=== PATIENT | female | born 1985 | race Hispanic/Latino ===

== ENCOUNTER 2022-01-19 20:54 | Inpatient (IN) | payer SELFPAY ==
[~2022-01-19 20:54] MED LIST: Iopamidol 370 76% 100 ML VIAL ONE
[2022-01-19 21:16] LABS: #Eosinphils 0.1 thou/uL (0.0-0.7); #Lymphocytes 1.6 thou/uL (1.20-3.40); #Monocytes 0.7 thou/uL (0.11-0.59); #Neutrophils 4.8 thou/uL (1.40-6.50); %Basophils 0.5 % (0.0-1.0); %Eosinophils 1.9 % (0.0-10.0); %Lymphocytes 22.3 % (21.0-51.0); %Neutrophils 66.3 % (42.0-75.0); Hemoglobin 11.9 g/dL (12.0-16.0); Mean Corpuscular HGB CONC 31.8 g/dL (32.0-36.0); Mean Corpuscular Hemoglobin 24.8 pg (27.0-31.0); Mean Corpuscular Volume 77.9 fL (78.0-98.0); Mean Platelet Volume 8.3 fL (7.4-10.4); Platelet Count 249 thou/uL (130-400); RBC Distribution Width 16.6 % (11.5-14.5); White Blood Cell (WBC) Count 7.3 thou/uL (4.8-10.8)
[2022-01-19 21:38] LABS: ALT (SGPT) 14 U/L (8-55); AST (SGOT) 23 U/L (5-34); Albumin 4.4 g/dL (3.5-5.0); Alkaline Phosphatase 63 U/L (40-110); Anion Gap 13 mmol/L (10-20); BUN (Urea Nitrogen) 14 mg/dL (7.0-18.7); Bilirubin, Total 0.5 mg/dL (0.2-1.2); Calc. Creatinine Clearance 0 mL/min (70-130); Calcium 9.2 mg/dL (7.8-10.44); Carbon Dioxide 27 mmol/L (22-29); Chloride 103 mmol/L (98-107); Globulin 3.5 g/dL (2.4-3.5); Glucose 103 mg/dL (70-105); Lipase 172 U/L (8-78); Potassium 3.3 mmol/L (3.5-5.1); Protein, Total 7.9 g/dL (6.0-8.3); Sodium 140 mmol/L (136-145)
[2022-01-19] MEDS ORDERED: Acetaminophen 500 MG TAB ONE (21:45)
[2022-01-19] MEDS ORDERED: Promethazine 25 MG TAB ONE (21:45)
[2022-01-19 23:13] LABS: Bacteria/HPF 1+ HPF (None Seen); Bilirubin Negative (Negative); Blood, Urine Trace (Negative); Clarity Turbid (Clear); Glucose, Urine (Dipstick) Normal (Negative); Ketone, Urine Trace mg/dL (Negative); Leukocyte 250 Leu/uL (Negative); Nitrite Negative (Negative); Protein, Urine (Dipstick) 70 mg/dL (Neg-Trace); Specific Gravity, Urine 1.033 (1.002-1.036); Urobilinogen Normal mg/dL (Less than 2); pH, Urine 6.5 (5.0-9.0)
[2022-01-19 23:14] LABS: Pregnancy Test - Urine (BHCG) Negative (Negative); Pregu Control Background? CLEAR/WHITE (CLR/WHITE); Pregu Control Bar Appear? YES (CONTROL BAR); Specific Gravity 1.033 (1.002-1.036)
[2022-01-19 23:18] LABS: BHCG - Serum Negative (NEGATIVE); Pregs Control Background? CLEAR/WHITE (CLR/WHITE); Pregs Control Bar Appear? YES (CONTROL BAR)
[2022-01-20] MEDS ORDERED: Pantoprazole 40 MG VIAL ONE (00:45)
[2022-01-20] MEDS ORDERED: Morphine 2 MG/ML VIAL ONE (00:51)
[2022-01-20] MEDS ORDERED: Acetaminophen 325 MG TAB PO PRN (03:00)
[2022-01-20 03:18] VITALS: BMI 36.6
[2022-01-20] MEDS: Morphine 2 MG/ML VIAL SLOW IVP PRN ×3 (10:54→21:39)
[2022-01-20] MEDS: Sodium Chloride 0.9% 1,000 ML IV SCH (10:54)
[2022-01-20 15:35] LABS: SARS-CoV-2 PCR by NAA Not Detected (NotDetected)
[2022-01-20] MEDS: Acetaminophen 325 MG TAB PO PRN (20:05)
[2022-01-20] MEDS: Pantoprazole 40 MG VIAL IVP SCH (20:07)
[2022-01-21] MEDS: Sodium Chloride 0.9% 1,000 ML IV SCH ×2 (00:01→13:41)
[2022-01-21] MEDS ORDERED: Morphine 2 MG/ML VIAL ONE ×2 (01:48→10:13)
[2022-01-21] MEDS: Morphine 2 MG/ML VIAL SLOW IVP PRN ×6 (01:50→22:49)
[2022-01-21 06:48] LABS: #Eosinphils 0.1 thou/uL (0.0-0.7); #Monocytes 0.4 thou/uL (0.11-0.59); #Neutrophils 2.5 thou/uL (1.40-6.50); %Basophils 0.3 % (0.0-1.0); %Eosinophils 2.3 % (0.0-10.0); %Monocytes 9.1 % (0.0-10.0); %Neutrophils 62.3 % (42.0-75.0); Hemoglobin 10.5 g/dL (12.0-16.0); Mean Corpuscular HGB CONC 31.7 g/dL (32.0-36.0); Mean Corpuscular Hemoglobin 25.2 pg (27.0-31.0); Mean Corpuscular Volume 79.5 fL (78.0-98.0); Mean Platelet Volume 8.8 fL (7.4-10.4); Platelet Count 184 thou/uL (130-400); RBC Distribution Width 16.6 % (11.5-14.5); Red Blood Cell (RBC) Count 4.16 mill/uL (4.20-5.40)
[2022-01-21 06:51] LABS: CRP (Inflammatory) 0.51 mg/dL (= or < 0.5)
[2022-01-21 06:54] LABS: Anion Gap 15 mmol/L (10-20); BUN (Urea Nitrogen) 9 mg/dL (7.0-18.7); Calc. Creatinine Clearance 196 mL/min (70-130); Calcium 8.4 mg/dL (7.8-10.44); Carbon Dioxide 21 mmol/L (22-29); Chloride 108 mmol/L (98-107); Glucose 70 mg/dL (70-105); Iron 35 ug/dL (50-170); Iron Binding Capacity, Total 375 mcg/dL (265-497); Sodium 140 mmol/L (136-145)
[2022-01-21] MEDS: Pantoprazole 40 MG VIAL IVP SCH ×2 (08:42→20:16)
[2022-01-21] MEDS ORDERED: Fentanyl 100 MCG/2 ML VIAL ONE ×3 (11:07→12:18)
[2022-01-21] MEDS ORDERED: PROPOFOL 200 MG/20 ML VIAL ONE (11:18)
[2022-01-21] MEDS ORDERED: Lidocaine 1% PF 5 ML VIAL ONE (11:18)
[2022-01-21] MEDS ORDERED: Cyanocobalamin 1000 MCG/ML VIAL IM SCH (13:00)
[2022-01-21] MEDS: Iron, Sodium Ferric Gluconate 250 MG in Sodium Chloride 0.9% 250 ML 250 ML IVPB SCH (20:16)
[2022-01-21] MEDS: Acetaminophen 325 MG TAB PO PRN (22:17)
[2022-01-21] MEDS ORDERED: Morphine 2 MG/ML VIAL SLOW IVP SCH (23:45)
[2022-01-22] MEDS: Morphine 2 MG/ML VIAL SLOW IVP PRN (03:19)
[2022-01-22] MEDS: Sodium Chloride 0.9% 1,000 ML IV SCH ×2 (05:09→17:19)
[2022-01-22] MEDS: Iron, Sodium Ferric Gluconate 250 MG in Sodium Chloride 0.9% 250 ML 250 ML IVPB SCH (08:39)
[2022-01-22] MEDS: Pantoprazole 40 MG VIAL IVP SCH (08:39)
[2022-01-22] MEDS ORDERED: Sodium Chloride 0.9% 1,000 ML IV SCH (09:00)
[2022-01-22] MEDS: Sucralfate 1 GM TAB PO SCH ×3 (11:14→21:09)
[2022-01-22] MEDS: Acetaminophen 325 MG TAB PO PRN (11:21)
[2022-01-22] MEDS ORDERED: Dicyclomine 20 MG TAB PO SCH (15:00)
[2022-01-22] MEDS ORDERED: Dicyclomine 10 MG CAP PO PRN (18:36)
[2022-01-22] MEDS ORDERED: Polyethylene Glycol 3350 17 GM Packet PO SCH (18:45)
[2022-01-23] MEDS: Acetaminophen 325 MG TAB PO PRN ×2 (00:50→06:05)
[2022-01-23] MEDS: Sodium Chloride 0.9% 1,000 ML IV SCH (03:22)
[2022-01-23] MEDS: Sucralfate 1 GM TAB PO SCH (06:03)
[2022-01-23 08:34] VITALS: BP 99/70; TEMP 98.1
[2022-01-23] MEDS ORDERED: Polyethylene Glycol 3350 17 GM Packet PO SCH (09:00)
[2022-01-23 16:56] LABS: ANA Symphony (Qualitative) Negative (Negative); ANA Symphony (Quantitative) 0.3 Ratio (< 0.7 Negative); dsDNA IgG Antibody 0.9 IU/mL (<10 Negative)
== END 2022-01-23 10:49 | disposition home or self-care (01) | DRG 384 ==
LOC: ERS 20:54 → T4-A 01-20 01:29 → OBSVTOIN 01-20 10:51
PROVIDERS: ADMIT Internal Medicine; ATTEND Internal Medicine
PROC: 0DB98ZX Excision of Duodenum, Via Natural or Artificial Opening Endoscopic, Diagnostic (ICD-10-PCS; principal; 2022-01-21)
PROC: 0DB78ZX Excision of Stomach, Pylorus, Via Natural or Artificial Opening Endoscopic, Diagnostic (ICD-10-PCS; 2022-01-21)
DX: K25.9 Gastric ulcer, unspecified as acute or chronic, without hemorrhage or perforation (principal); K50.00 Crohn's disease of small intestine without complications; K31.1 Adult hypertrophic pyloric stenosis; D50.9 Iron deficiency anemia, unspecified; Z20.822 Contact with and (suspected) exposure to COVID-19; F31.9 Bipolar disorder, unspecified; K28.9 Gastrojejunal ulcer, unspecified as acute or chronic, without hemorrhage or perforation; K29.70 Gastritis, unspecified, without bleeding; M06.9 Rheumatoid arthritis, unspecified; M32.9 Systemic lupus erythematosus, unspecified; E53.8 Deficiency of other specified B group vitamins; F41.1 Generalized anxiety disorder; Z88.8 Allergy status to other drugs, medicaments and biological substances; Z90.49 Acquired absence of other specified parts of digestive tract; Z83.79 Family history of other diseases of the digestive system; Z79.899 Other long term (current) drug therapy
CPT/HCPCS: 36415; 74177; 80048; 80053; 81003; 81015; 81025; 82607; 82728; 82746; 83540; 83550; 83690; 84703; 85025; 85652; 86038; 86140; 86225; 88305; 88342; 96374; 96375; C9113; G0378; J2270; J2704; J2916; J3010; J3420; J7050; Q0169; Q9967; U0003; U0005